=== PATIENT | female | born 1970 | race Caucasian/White ===

== ENCOUNTER → 2017-08-21 | Outpatient (REF) | payer BC ==
[2017-08-21 13:24] LABS: FERRITIN 17 NG/ML (8-252); IRON (FE) 149 UG/DL (50-170); PERCENT SATURATION 32.7 % (13.2-45.0); TOTAL IRON BINDING CAPACITY 455 UG/DL (250-450)
[2017-08-21 14:41] LABS: VITAMIN B12 LEVEL 344 PG/ML
[2017-08-21 14:42] LABS: FOLATE 7.6 NG/ML
== END ==
LOC: M LAB REF 12:34
DX: Z98.84 Bariatric surgery status (principal)
CPT/HCPCS: 82746

== ENCOUNTER → 2017-08-31 | Outpatient (CLI) | payer BC | LOC: M WUC 16:37 | DX: M19.042 Primary osteoarthritis, left hand (principal); M79.645 Pain in left finger(s) | CPT/HCPCS: 73130 ==